=== PATIENT | male | born 1985 | race Caucasian/White ===

== ENCOUNTER 2019-05-08 15:10 | Inpatient (IN) | payer OTHER ==
[~2019-05-08] VITALS: Ht 160 cm; Wt 106.0 kg
[2019-05-08] MEDS ORDERED: OLAN15TA2 PO (15:13)
[2019-05-08] MEDS ORDERED: OLANZapine 5 MG TABLET PO ONE (16:00)
[2019-05-08 16:05] LABS: BASOPHILS % (AUTO) 0.5 % (0.0-2.0); EOSINOPHILS % (AUTO) 2.6 % (1.0-6.0); HEMATOCRIT 42.2 % (41-53); LYMPHOCYTES # (AUTO) 2.4 K/uL (1.0-4.8); LYMPHOCYTES % (AUTO) 35.6 % (22.0-44.0); MEAN CORPUSCULAR HEMOGLOBIN 30.2 pg (26.0-34.0); MEAN CORPUSCULAR HGB CONC 35.6 G/dL (31.0-37.0); MEAN CORPUSCULAR VOLUME 85 fL (80-100); MONOCYTES # (AUTO) 0.5 K/uL (0.1-1.0); MONOCYTES % (AUTO) 7.8 % (2.0-9.0); NEUTROPHILS # (AUTO) 3.6 K/uL (1.8-7.7); NEUTROPHILS % (AUTO) 53.5 % (40.0-70.0); PLATELET COUNT (AUTO) 259 K/uL (150-450); RED BLOOD CELL COUNT(AUTO) 4.98 MIL/uL (4.50-5.90); RED CELL DISTRIBUTION WIDTH 13.7 % (11.5-14.5)
[2019-05-08 16:29] LABS: ANION GAP 12 mmol/L (8-16); CALCIUM, TOTAL 8.2 mg/dL (8.8-10.5); CARBON DIOXIDE 23 mmol/L (22-29); CHLORIDE 107 mmol/L (98-107); CREATININE 1.06 mg/dL (0.60-1.30); GLOMERULAR FILTR. RATE CALC > 60 mL/min (>60); GLUCOSE,RANDOM 143 mg/dL (70-110); POTASSIUM 3.9 mmol/L (3.5-5.1); SODIUM SERUM 142 mmol/L (136-145); UREA NITROGEN, BLOOD 8 mg/dL (7-18)
[2019-05-08 16:41] LABS: ALANINE AMINOTRANSFERASE 94 U/L (12-78); ALBUMIN 3.5 g/dL (3.4-5.0); ALKALINE PHOSPHATASE 107 U/L (46-116); ASPARTATE AMINOTRANSFERASE 52 U/L (15-37); BILIRUBIN,TOTAL 0.2 mg/dL (0.1-1.0); TOTAL PROTEIN, SERUM 7.3 g/dL (6.4-8.2)
[2019-05-08 16:51] VITALS: BP 140/95
[2019-05-08] MEDS ORDERED: MAG HYDROX/AL HYDROX/SIMETH ES 30 ML SUSPENSION UDCUP PO PRN (17:15)
[2019-05-08] MEDS ORDERED: ACETAMINOPHEN 325 MG TABLET PO PRN (17:15)
[2019-05-08] MEDS ORDERED: CloNIDine HCL 0.1 MG TABLET PO PRN (17:15)
[2019-05-08] MEDS ORDERED: DOCUSATE SODIUM 100 MG CAPSULE PO PRN (17:15)
[2019-05-08] MEDS ORDERED: ALBUTEROL SULFATE HFA 90 MCG/PUFF 8 GM INHALER IH PRN (17:15)
[2019-05-08] MEDS ORDERED: IBUPROFEN 400 MG TABLET PO PRN (17:15)
[2019-05-08] MEDS ORDERED: LOPERAMIDE HCL 2 MG CAPSULE PO PRN (17:15)
[2019-05-08] MEDS ORDERED: NICOTINE 14 MG/24 HOUR PATCH TD PRN (17:15)
[2019-05-08] MEDS ORDERED: GuaiFENesin/D-METHORPHAN [SUGAR-FREE] 200-20MG/10 ML SYRUP UDCUP PO PRN (17:15)
[2019-05-08] MEDS ORDERED: MAGNESIUM HYDROXIDE SUSPENSION 30 ML UDCUP PO PRN (17:15)
[2019-05-08] MEDS ORDERED: ONDANSETRON HCL 4 MG TABLET PO PRN (17:15)
[2019-05-08] MEDS ORDERED: PETROLATUM,WHITE 28 GM JELLY TP PRN (17:15)
[2019-05-08 18:08] LABS: AMPHET/METH SCREEN,URINE NEGATIVE (NEGATIVE); BARBITURATE SCREEN, URINE NEGATIVE (NEGATIVE); BENZODIAZEPINES SCREEN,URINE NEGATIVE (NEGATIVE); CANNABINOID SCREEN,URINE NEGATIVE (NEGATIVE); COCAINE SCREEN,URINE NEGATIVE (NEGATIVE); METHADONE SCREEN, URINE NEGATIVE (NEGATIVE); OPIATE SCREEN,URINE NEGATIVE (NEGATIVE)
[2019-05-08 18:09] LABS: PHENCYCLIDINE SCREEN,URINE NEGATIVE (NEGATIVE)
[2019-05-08 20:00] VITALS: BP 136/85
[2019-05-09] VITALS (8 sets, daily range): BP systolic 103–134; BP diastolic 83–97
[2019-05-09 07:07] LABS: BASOPHILS % (AUTO) 0.5 % (0.0-2.0); EOSINOPHILS % (AUTO) 7.4 % (1.0-6.0); HEMATOCRIT 41.2 % (41-53); HEMOGLOBIN 14.5 g/dL (13.5-17.5); LYMPHOCYTES # (AUTO) 2.6 K/uL (1.0-4.8); MEAN CORPUSCULAR HEMOGLOBIN 29.6 pg (26.0-34.0); MEAN CORPUSCULAR HGB CONC 35.1 G/dL (31.0-37.0); MEAN CORPUSCULAR VOLUME 84 fL (80-100); MONOCYTES # (AUTO) 0.6 K/uL (0.1-1.0); MONOCYTES % (AUTO) 9.8 % (2.0-9.0); NEUTROPHILS # (AUTO) 2.1 K/uL (1.8-7.7); NEUTROPHILS % (AUTO) 37.3 % (40.0-70.0); PLATELET COUNT (AUTO) 231 K/uL (150-450); RED BLOOD CELL COUNT(AUTO) 4.89 MIL/uL (4.50-5.90); RED CELL DISTRIBUTION WIDTH 13.7 % (11.5-14.5)
[2019-05-09] MEDS: NICOTINE 14 MG/24 HOUR PATCH TD SCH (11:08)
[2019-05-10 07:07] VITALS: BP 112/93
[2019-05-10] MEDS: NICOTINE 14 MG/24 HOUR PATCH TD SCH (08:11)
[2019-05-10] MEDS ORDERED: NICOTINE 14 MG/24 HOUR PATCH TD SCH (09:00)
[2019-05-10 11:45] VITALS: BP 123/83
[2019-05-10] MEDS ORDERED: OLANZapine 10 MG TABLET PO ONE (15:15)
[2019-05-10 15:17] VITALS: BP 131/87
[2019-05-10 16:48] VITALS: BP 134/86
[2019-05-10 20:00] VITALS: BP 126/69
[2019-05-10] MEDS: OLANZapine 10 MG TABLET PO SCH (20:04)
[2019-05-11] VITALS (7 sets, daily range): BP systolic 101–127; BP diastolic 56–90
[2019-05-11] MEDS: NICOTINE 14 MG/24 HOUR PATCH TD SCH (08:43)
[2019-05-11] MEDS: OLANZapine 10 MG TABLET PO SCH (20:10)
[2019-05-12 04:27] VITALS: BP 121/73
[2019-05-12 08:49] VITALS: BP 150/96
[2019-05-12] MEDS: NICOTINE 14 MG/24 HOUR PATCH TD SCH (09:35)
[2019-05-12] MEDS ORDERED: OLAN10TA3 PO (13:06)
[2019-05-12] MEDS: OLANZapine 10 MG TABLET PO SCH (20:01)
[2019-05-12 20:20] VITALS: BP 125/84
== END 2019-05-12 22:24 | DRG 885 ==
LOC: EMS 15:14 → 6S 15:57
PROVIDERS: ADMIT Internal Medicine; ATTEND Internal Medicine
DX: F20.0 Paranoid schizophrenia (principal); R45.851 Suicidal ideations; S00.03XA Contusion of scalp, initial encounter; F17.200 Nicotine dependence, unspecified, uncomplicated; F10.10 Alcohol abuse, uncomplicated; R74.0 Nonspecific elevation of levels of transaminase and lactic acid dehydrogenase [LDH]; X58.XXXA Exposure to other specified factors, initial encounter; Y93.89 Activity, other specified; Y92.89 Other specified places as the place of occurrence of the external cause; Y99.8 Other external cause status; Z91.012 Allergy to eggs; Z91.018 Allergy to other foods; F19.10 Other psychoactive substance abuse, uncomplicated; K21.9 Gastro-esophageal reflux disease without esophagitis
CPT/HCPCS: G0480

== ENCOUNTER 2019-05-14 21:26 | Inpatient (IN) | payer OTHER ==
[~2019-05-14] VITALS: Ht 160 cm; Wt 89.2 kg
[~2019-05-14 21:26] MED LIST: OLAN10TA3 PO
[2019-05-14 21:45] LABS: BASOPHILS % (AUTO) 0.6 % (0.0-2.0); EOSINOPHILS % (AUTO) 4.4 % (1.0-6.0); HEMATOCRIT 42.4 % (41-53); HEMOGLOBIN 15.4 g/dL (13.5-17.5); LYMPHOCYTES # (AUTO) 2.4 K/uL (1.0-4.8); LYMPHOCYTES % (AUTO) 36.8 % (22.0-44.0); MEAN CORPUSCULAR HEMOGLOBIN 30.8 pg (26.0-34.0); MEAN CORPUSCULAR HGB CONC 36.3 G/dL (31.0-37.0); MEAN CORPUSCULAR VOLUME 85 fL (80-100); MONOCYTES # (AUTO) 0.6 K/uL (0.1-1.0); MONOCYTES % (AUTO) 8.7 % (2.0-9.0); NEUTROPHILS # (AUTO) 3.3 K/uL (1.8-7.7); NEUTROPHILS % (AUTO) 49.5 % (40.0-70.0); PLATELET COUNT (AUTO) 265 K/uL (150-450); RED CELL DISTRIBUTION WIDTH 13.7 % (11.5-14.5)
[2019-05-14 21:56] LABS: ANION GAP 8 mmol/L (8-16); CALCIUM, TOTAL 7.8 mg/dL (8.8-10.5); CARBON DIOXIDE 27 mmol/L (22-29); CHLORIDE 104 mmol/L (98-107); CREATININE 1.03 mg/dL (0.60-1.30); GLOMERULAR FILTR. RATE CALC > 60 mL/min (>60); GLUCOSE,RANDOM 144 mg/dL (70-110); POTASSIUM 4.1 mmol/L (3.5-5.1); SODIUM SERUM 139 mmol/L (136-145); UREA NITROGEN, BLOOD 10 mg/dL (7-18)
[2019-05-14 22:02] LABS: ALBUMIN 3.4 g/dL (3.4-5.0); ALKALINE PHOSPHATASE 104 U/L (46-116); BILIRUBIN,TOTAL 0.5 mg/dL (0.1-1.0)
[2019-05-14 22:13] LABS: ALANINE AMINOTRANSFERASE 112 U/L (12-78)
[2019-05-14 22:39] LABS: TOTAL PROTEIN, SERUM 8.8 g/dL (6.4-8.2)
[2019-05-14 22:40] LABS: ASPARTATE AMINOTRANSFERASE 71 U/L (15-37)
[2019-05-14] MEDS ORDERED: ACETAMINOPHEN 325 MG TABLET PO PRN ×2 (22:45→23:00)
[2019-05-14] MEDS ORDERED: 0.9% SODIUM CHLORIDE 10 ML SYRINGE IVP PRN (22:45)
[2019-05-14] MEDS ORDERED: ONDANSETRON HCL 4 MG/2 ML VIAL IVP PRN (22:45)
[2019-05-14] MEDS ORDERED: HALOPERIDOL LACTATE 5 MG/ML VIAL IM PRN (23:00)
[2019-05-15] VITALS (7 sets, daily range): BP systolic 106–126; BP diastolic 54–87
[2019-05-15] MEDS: DOCUSATE SODIUM 100 MG CAPSULE PO SCH ×2 (09:00→20:31)
[2019-05-15] MEDS: OLANZapine 5 MG TABLET PO SCH ×2 (10:06→20:32)
[2019-05-15] MEDS: FAMOTIDINE 20 MG TABLET PO SCH (10:06)
[2019-05-15 11:07] LABS: AMPHET/METH SCREEN,URINE NEGATIVE (NEGATIVE); BARBITURATE SCREEN, URINE NEGATIVE (NEGATIVE); BENZODIAZEPINES SCREEN,URINE NEGATIVE (NEGATIVE); CANNABINOID SCREEN,URINE NEGATIVE (NEGATIVE); COCAINE SCREEN,URINE NEGATIVE (NEGATIVE); METHADONE SCREEN, URINE NEGATIVE (NEGATIVE); OPIATE SCREEN,URINE NEGATIVE (NEGATIVE)
[2019-05-15 11:08] LABS: PHENCYCLIDINE SCREEN,URINE NEGATIVE (NEGATIVE)
[2019-05-16 08:25] VITALS: BP 106/73
[2019-05-16] MEDS: FAMOTIDINE 20 MG TABLET PO SCH (08:38)
[2019-05-16] MEDS: OLANZapine 5 MG TABLET PO SCH ×2 (08:39→21:03)
[2019-05-16] MEDS: DOCUSATE SODIUM 100 MG CAPSULE PO SCH ×2 (08:39→21:03)
[2019-05-16 11:48] VITALS: BP 117/73
[2019-05-16 14:58] VITALS: BP 117/74
[2019-05-16 20:12] VITALS: BP 120/83
[2019-05-17] VITALS (7 sets, daily range): BP systolic 101–127; BP diastolic 67–78
[2019-05-17] MEDS: OLANZapine 5 MG TABLET PO SCH ×2 (08:13→20:28)
[2019-05-17] MEDS: FAMOTIDINE 20 MG TABLET PO SCH (08:13)
[2019-05-17] MEDS: DOCUSATE SODIUM 100 MG CAPSULE PO SCH ×2 (08:13→20:28)
[2019-05-18 05:33] VITALS: BP 118/90
[2019-05-18 07:45] VITALS: BP 132/89
[2019-05-18] MEDS: DOCUSATE SODIUM 100 MG CAPSULE PO SCH ×2 (08:15→20:57)
[2019-05-18] MEDS: FAMOTIDINE 20 MG TABLET PO SCH (08:15)
[2019-05-18] MEDS: OLANZapine 5 MG TABLET PO SCH ×2 (08:16→20:57)
[2019-05-18 11:30] VITALS: BP 123/87
[2019-05-18 16:00] VITALS: BP 119/90
[2019-05-18 19:43] VITALS: BP 124/87
[2019-05-19] VITALS: BP 112/78
[2019-05-19 04:00] VITALS: BP 120/82
[2019-05-19 07:48] VITALS: BP 114/64
[2019-05-19] MEDS: DOCUSATE SODIUM 100 MG CAPSULE PO SCH ×2 (08:27→20:05)
[2019-05-19] MEDS: FAMOTIDINE 20 MG TABLET PO SCH (08:27)
[2019-05-19] MEDS: OLANZapine 5 MG TABLET PO SCH ×2 (08:27→20:06)
[2019-05-19 11:32] VITALS: BP 125/63
[2019-05-19 15:19] VITALS: BP 113/72
[2019-05-19 19:51] VITALS: BP 117/73
[2019-05-20] VITALS: BP 111/74
[2019-05-20 07:40] VITALS: BP 117/78
[2019-05-20] MEDS: OLANZapine 5 MG TABLET PO SCH (08:53)
[2019-05-20] MEDS: FAMOTIDINE 20 MG TABLET PO SCH (08:53)
[2019-05-20] MEDS: DOCUSATE SODIUM 100 MG CAPSULE PO SCH (08:53)
[2019-05-20 12:44] VITALS: BP 116/74
[2019-05-20] MEDS ORDERED: OLAN10TA3 PO (13:41)
== END 2019-05-20 14:07 | DRG 885 ==
LOC: EMS 21:28 → 6S 22:00
PROVIDERS: ADMIT Internal Medicine; ATTEND Internal Medicine
DX: F20.0 Paranoid schizophrenia (principal); R45.851 Suicidal ideations; K21.9 Gastro-esophageal reflux disease without esophagitis; Z91.012 Allergy to eggs; R74.0 Nonspecific elevation of levels of transaminase and lactic acid dehydrogenase [LDH]; F19.90 Other psychoactive substance use, unspecified, uncomplicated
CPT/HCPCS: 76700; 87081; G0480